=== PATIENT | male | born 1975 | race Caucasian/White ===

== ENCOUNTER 2023-10-30 22:29 | Emergency (ER) | payer OTHER, SELFPAY ==
[2023-10-30 22:57] VITALS: BP 173/99; PULSE 123; TEMP 38; O2SAT 98; BMI 34.7
--- NOTE | 2023-10-30 23:20 | CT_ITS ---
The [address] [address] Patient Name: SYBIL LUCIA MRN: [id number] date: 1975 Sex: M Assigned Patient Location: ER Current Patient Location: ER Accession/Order Number: [id number] Exam Date: 10/30/2023 23:44 Report Date: 10/31/2023 00:34 At the request of: SOTERO MARKER Procedure: CT abdomen pelvis w con EXAM: CT abdomen pelvis w con HISTORY: fever, abd pain COMPARISON: CT abdomen and pelvis examination dated 04/02/2021. TECHNIQUE: Axial CT images through the abdomen and pelvis were obtained after the intravenous administration of contrast. Coronal and sagittal reformats were obtained. Dose reduction techniques were achieved by using automated exposure control and/or adjustment of mA and/or kV according to patient size and/or use of iterative reconstruction technique. FINDINGS: There is mild bibasilar atelectasis. Abdomen: The liver and spleen enhance homogeneously without focal lesion. There is no intra or extrahepatic biliary duct dilatation. The gallbladder is surgically absent. There are a few subcentimeter hypodensities in the kidneys that are too small to characterize by CT size criteria. Otherwise, the pancreas, adrenal glands, kidneys, and bowel loops are unremarkable. The patient is status post an appendectomy. There is no mesenteric or retroperitoneal lymphadenopathy. Pelvis: The bladder is collapsed with possible wall thickening. The rectum is unremarkable. There is no iliac or inguinal lymphadenopathy. There is a small fat-containing left inguinal hernia. Bone windows show no aggressive osseous lesions. CT/CT abdomen pelvis w con IMPRESSION: 1. No specific etiology identified to explain the patient's abdominal pain. 2. Status post cholecystectomy and appendectomy. 3. Urinary bladder wall thickening which could be secondary to nondistention; however, please correlate with urinalysis for infection. Electronically authenticated by: Cruzito OSBORN Date: 10/31/2023 00:34
[2023-10-30 23:39] LABS: Adenovirus NOT DETECTED (NOT DETECTE); Bordetella parapertussis NOT DETECTED (NOT DETECTE); Coronavirus 229E NOT DETECTED (NOT DETECTE); Coronavirus HKU1 NOT DETECTED (NOT DETECTE); Coronavirus NL63 NOT DETECTED (NOT DETECTE); Coronavirus OC43 NOT DETECTED (NOT DETECTE); Human Rhinovirus/Enterovirus NOT DETECTED (NOT DETECTE); Influenza A NOT DETECTED (NOT DETECTE); Influenza B NOT DETECTED (NOT DETECTE); Mycoplasma pneumoniae NOT DETECTED (NOT DETECTE); Parainfluenza Virus 1 NOT DETECTED (NOT DETECTE); Parainfluenza Virus 2 NOT DETECTED (NOT DETECTE); Parainfluenza Virus 3 NOT DETECTED (NOT DETECTE); Parainfluenza Virus 4 NOT DETECTED (NOT DETECTE); Respiratory Syncytial Virus NOT DETECTED (NOT DETECTE); SARS-CoV-2 NOT DETECTED (NOT DETECTE)
[2023-10-30 23:40] LABS: Hematocrit 44.7 % (42.0-54.0); Hemoglobin 14.8 g/dL (14.0-18.0); Mean Corpuscular HGB Conc 33.1 g/dL (29.9-35.2); Mean Corpuscular Hemoglobin 30.5 pg (25.9-34.0); Mean Platelet Volume 9.6 fL (9.5-13.5); Platelet Count 268 10^3/uL (150-450); Red Blood Count 4.86 10^6/uL (4.70-6.10); Red Cell Distribution Width 12.1 % (11.0-15.0); White Blood Count 14.8 10^3/uL (4.0-11.0)
[2023-10-30 23:47] LABS: Internal Control Within Normal Limits; Strep A Antigen Screen Negative
[2023-10-30 23:50] LABS: Adenovirus F 40/41 NOT DETECTED (NOT DETECTE); Astrovirus NOT DETECTED (NOT DETECTE); Campylobacter NOT DETECTED (NOT DETECTE); Cryptosporidium NOT DETECTED (NOT DETECTE); Cyclospora cayetanensis NOT DETECTED (NOT DETECTE); Entamoeba histolytica NOT DETECTED (NOT DETECTE); Enteroaggregative E.coli NOT DETECTED (NOT DETECTE); Enteropathogenic E.coli NOT DETECTED (NOT DETECTE); Enterotoxigenic E. coli NOT DETECTED (NOT DETECTE); Giardia lamblia NOT DETECTED (NOT DETECTE); Norovirus GI/GII NOT DETECTED (NOT DETECTE); Plesiomonas shigelloides NOT DETECTED (NOT DETECTE); Rotavirus A NOT DETECTED (NOT DETECTE); Salmonella NOT DETECTED (NOT DETECTE); Sapovirus NOT DETECTED (NOT DETECTE); Shiga-like toxin-producing E.C NOT DETECTED (NOT DETECTE); Shigella/Enteroinvasive E.coli NOT DETECTED (NOT DETECTE); Vibrio NOT DETECTED (NOT DETECTE); Vibrio cholerae NOT DETECTED (NOT DETECTE); Yersinia enterocolitica NOT DETECTED (NOT DETECTE)
[2023-10-30 23:53] LABS: Bilirubin Urine NEGATIVE (NEGATIVE); Blood Urine NEGATIVE (NEGATIVE); Clarity Urine CLEAR (CLEAR); Color Urine YELLOW (YELLOW); Glucose Urine UA NEGATIVE (NEGATIVE); Ketones Urine NEGATIVE (NEGATIVE); Leukocyte Esterase Urine NEGATIVE (NEGATIVE); Nitrite Urine NEGATIVE (NEGATIVE); Protein Urine NEGATIVE (NEG/TRACE); Specific Gravity Urine >=1.030 (1.005-1.025); Urobilinogen Urine 0.2 EU/dL (0.2-1.0)
[2023-10-30 23:56] LABS: Urine Microscopic Indicated NO
[2023-10-30] MEDS: LACTATED RINGER'S SOLUTION 1,000 ML 999 ML IV (23:56)
--- NOTE | 2023-10-31 00:07 | ED_ITS ---
HPI HPI - General Adult General Chief complaint: Abdominal Pain Stated complaint: Flu Like Symptoms Time Seen by Provider: 10/30/23 23:18 Source: patient Mode of arrival: walk-in Limitations: no limitations History of Present Illness HPI narrative: This 48-year-old male who has had multiple abdominal surgeries including hernia surgery, cholecystectomy, appendectomy and has a history of hypertension presents for evaluation of fever, diarrhea and generalized abdominal pain. The symptoms started yesterday. He was on a family vacation last week and his granddaughter was sick at that time although she had upper respiratory symptoms. He states he had a temperature of 101 at home. Upon arrival in emergency department his 100.4. He is nauseated but has not vomited but has had multiple episodes of diarrhea throughout the day. He has generalized abdominal pain. He denies any headache or sore throat. He does not have a cough. He denies a history of tobacco use but does use a vape pen. Related Data Home Medications ?Medication ?Instructions ?Recorded ?Confirmed lisinopril 10 mg tablet 10 mg PO DAILY 10/30/23 10/30/23 pantoprazole 40 mg tablet,delayed 40 mg PO DAILY 10/30/23 10/30/23 release rivaroxaban 20 mg tablet (Xarelto) 20 mg PO Q24H 10/30/23 10/30/23 Allergies Allergy/AdvReac Type Severity Reaction Status Date / Time No Known Drug Allergies Allergy Verified 10/30/23 22:57 Opioid HPI Opioid Management Most Recent Opioid Data: Last Pain Scale 7 10/30/23 23:21 Last ED Pain Assessment 10/30/23 23:21 Last MAR Pain Assessment 10/31/23 00:29 Review of Systems ROS Status of ROS 10 or more systems reviewed and unremark able except as noted in history and below [facility] Medical History (Updated 10/31/23 @ 01:43 by Marybeth Isbell MD) Hypertension ?I10 - Essential (primary) hypertension (ICD-10) DVT (deep venous thrombosis) ?I82.409 - Acute embolism and thrombosis of unspecified deep veins of unspecified lower extremity (ICD-10) Surgical History (Updated 10/30/23 @ 23:11 by Lowell Lorenzo) Status post left foot surgery ?Z98.890 - Other specified postprocedural states (ICD-10) H/O inguinal hernia repair ?Z98.890 - Other specified postprocedural states (ICD-10) ?Z87.19 - Personal history of other diseases of the digestive system (ICD-10) H/O umbilical hernia repair ?Z98.890 - Other specified postprocedural states (ICD-10) ?Z87.19 - Personal history of other diseases of the digestive system (ICD-10) Hx of appendectomy ?Z90.49 - Acquired absence of other specified parts of digestive tract (ICD- 10) History of cholecystectomy ?Z90.49 - Acquired absence of other specified parts of digestive tract (ICD- 10) Exam Narrative Exam Narrative: Nurses note and vital signs reviewed; Patient is febrile, tachycardic and blood pressure is elevated at 173/99, he is not hypoxic a pulse ox 98 percent on room air General: Ill-appearing overweight male, no respiratory distress Skin: Warm, dry, no pallor noted. There is no rash noted. Head: Normocephalic, atraumatic Eye: Normal conjunctiva, no drainage, EOMI. PERRL Ears, Nose, Mouth, and Throat: oral mucosa is moist. Nares patent. Mouth without vesicles. Neck: Supple, no meningeal signs Cardiovascular: Regular Rate and Rhythm, Tachycardic at 123 bpm Respiratory: Patient is in no distress, no accessory muscle use, lungs are clear to auscultation, no wheezing, rales or rhonchi Back: non-tender, no CVA tenderness bilaterally to percussion. GI: Hyperactive bowel sounds with generalized abdominal tenderness, no rebound guarding rigidity appreciated Musculoskeletal: The patient has no evidence of calf tenderness, no pitting edema, symmetrical pulses noted bilaterally Neurological: A&O x4, normal speech Psychiatric: Cooperative, Anxious Constitutional Vital Signs, click to edit/add: Last Vital Signs Temp 101.3 F H 10/31/23 00:32 Pulse 98 H 10/31/23 00:32 Resp 20 10/31/23 00:32 BP 165/84 H 10/31/23 00:32 Pulse Ox 97 10/31/23 00:32 O2 Del Method Room Air 10/31/23 00:32 Course Vital Signs Vital signs: Vital Signs Temperature 100.4 F 10/30/23 22:57 Pulse Rate 123 H 10/30/23 22:57 Respiratory Rate 18 10/30/23 22:57 Blood Pressure 173/99 H 10/30/23 22:57 Pulse Oximetry 98 10/30/23 22:57 Oxygen Delivery Method Room Air 10/30/23 22:57 Temperature 101.3 F H 10/31/23 00:32 Pulse Rate 98 H 10/31/23 00:32 Respiratory Rate 20 10/31/23 00:32 Blood Pressure 165/84 H 10/31/23 00:32 Pulse Oximetry 97 10/31/23 00:32 Oxygen Delivery Method Room Air 10/31/23 00:32 Medical Decision Making MDM Narrative Medical decision making narrative: This 48 year old male who is status post cholecystectomy and appendectomy and multiple hernia surgeries presents for evaluation of fever with abdominal episodes of diarrhea starting yesterday. His granddaughter was recently sick with upper respiratory infection. Upon arrival he was tachycardic and febrile. He was somewhat ill-appearing. He had diffuse abdominal tenderness. EKG upon arrival was a sinus tachycardia at 108 beats per minute with no acute changes. A septic workup was ordered with 2 sets of blood cultures chemistry panel CBC with differential, lactic acid and Respiratory panel, strep and CT scan of abdomen/ pelvis. He has an elevated WBC count at 14.8 with a normal hemoglobin. Lactic acid was normal. Electrolytes are normal. respiratory panel is positive for metapneumo virus. Strep testing is negative. Stool is positive for C diff. CT scan of the abdomen and pelvis with IV contrast was ordered to rule out acute diverticulitis or other infectious etiologies the body of this report and does not show any findings that account for the patients symptoms. Is also his labs and CT scan were discussed with the patient. He was started on oral vancomycin in the emergency department. He was recently on Augmentin for a ear infection/sinus infection, he states that was approximately 2-3 weeks ago. This is likely the etiology of his C. difficile infection. The patient does not have a family physician currently and states he is running out of his usual m edications including Xarelto and lisinopril. He is on Xarelto due to a history of deep vein thromboses from an unknown etiology. He will be given refills for his Xarelto lisinopril in emergency department and referred to outpatient family medicine accepting new patients. He feels comfortable being discharged home at this time and in addition to the vancomycin lisinopril and Xarelto will be given prescriptions for Zofran and Bentyl for the nausea and abdominal cramping. Medical Records Medical records narrative: The [address] [address] [address] Scan Report Signed Patient: SYBIL LUCIA MR#: [id number] : 1975 Acct:[id number] Age/Sex: 48 / M ADM Date: 10/30/23 Loc: ER Attending Dr: Ordering Physician: Marybeth Isbell Date of Service: 10/30/23 Procedure(s): CT abdomen pelvis w con Accession Number(s): [id number] cc: Physician,Non-Staff M.D.~ The [address] [address] Patient Name: SYBIL LUCIA MRN: [id number] date: 1975 Sex: M Assigned Patient Location: ER Current Patient Location: ER Accession/Order Number: [id number] Exam Date: 10/30/2023 23:44 Report Date: 10/31/2023 00:34 At the request of: MARYBETH ISBELL Procedure: CT abdomen pelvis w con EXAM: CT abdomen pelvis w con HISTORY: fever, abd pain COMPARISON: CT abdomen and pelvis examination dated 04/02/2021. TECHNIQUE: Axial CT images through the abdomen and pelvis were obtained after the intravenous administration of contrast. Coronal and sagittal reformats were obtained. Dose reduction techniques were achieved by using automated exposure control and/or adjustment of mA and/or kV according to patient size and/or use of iterative reconstruction technique. FINDINGS: There is mild bibasilar atelectasis. Abdomen: The liver and spleen enhance homogeneously without focal lesion. There is no intra or extrahepatic biliary duct dilatation. The gallbladder is surgically absent. There are a few subcentimeter hypodensities in the kidneys that are too small to characterize by CT size criteria. Otherwise, the pancreas, adrenal glands, kidneys, and bowel loops are unremarkable. The patient is status post an appendectomy. There is no mesenteric or retroperitoneal lymphadenopathy. Pelvis: The bladder is collapsed with possible wall thickening. The rectum is unremarkable. There is no iliac or inguinal lymphadenopathy. There is a small fat-containing left inguinal hernia. Bone windows show no aggressive osseous lesions. CT/CT abdomen pelvis w con IMPRESSION: 1. No specific etiology identified to explain the patient's abdominal pain. 2. Status post cholecystectomy and appendectomy. 3. Urinary bladder wall thickening which could be secondary to nondistention; however, please correlate with urinalysis for infection. Electronically authenticated by: Cruzito OSBORN Date: 10/31/2023 00:34 Lab Data Lab results reviewed: Yes I reviewed the patient's lab results Labs: Lab Results 10/30/23 10/30/23 Range/Units 23:25 23:46 WBC 14.8 H (4.0-11.0) 10^3/uL RBC 4.86 (4.70-6.10) 10^6/uL Hgb 14.8 (14.0-18.0) g/dL Hct 44.7 (42.0-54.0) % MCV 92.0 (80.0-94.0) fL MCH 30.5 (25.9-34.0) pg MCHC 33.1 (29.9-35.2) g/dL RDW 12.1 (11.0-15.0) % Plt Count 268 (150-450) 10^3/uL MPV 9.6 (9.5-13.5) fL Seg Neuts % (Manual) 75.0 Band Neutrophils % 1.0 (0-5) % Lymphocytes % (Manual) 6.0 L (20.5-60.0) % Atypical Lymphs % (Man) 4.0 % Monocytes % (Manual) 14.0 H (1.7-12.0) % Eosinophils % (Manual) 0.0 L (0.9-7.0) % Basophils % (Manual) 0.0 L (0.2-2.0) % Neutrophils # (Manual) 11.10 H (1.4-6.5) 10^3/uL Band Neutrophils # 0.1 (0.0-0.3) 10^3/uL Lymphocytes # (Manual) 0.88 L (1.20-3.80) 10^3/uL Abs Atypical Lymphs Man 0.59 Monocytes # (Manual) 2.07 H (0.30-0.80) 10^3/uL Eosinophils # (Manual) 0.00 (0.00-0.70) 10^3/uL Basophils # (Manual) 0.00 (0.00-0.10) 10^3/uL Toxic Vacuolation 2+ Sodium 137 (136-145) mmol/L Potassium 4.2 (3.5-5.1) mmol/L Chloride 103 (98-107) mmol/L Carbon Dioxide 23.5 (21.0-32.0) mmol/L Anion Gap 14.7 BUN 12.0 (7.0-18.0) mg/dL Creatinine 0.99 (0.70-1.30) mg/dL Est GFR ( Amer) >60 (>=60) Est GFR (Non-Af Amer) >60 (>=60) BUN/Creatinine Ratio 12.1 Glucose 102 (74-106) mg/dL Lactate 1.6 (0.4-2.0) mmol/L Calcium 9.3 (8.5-10.1) mg/dL Total Bilirubin 0.3 (0.2-1.0) mg/dL AST 24 (15-37) U/L ALT 47 (16-63) U/L Alkaline Phosphatase 114 (46-116) U/L Total Protein 7.2 (6.4-8.2) g/dL Albumin 3.3 L (3.4-5.0) g/dL Globulin 3.9 g/dL Albumin/Globulin Ratio 0.8 Procalcitonin 0.12 (0.00-0.50) ng/mL Urine Color Yellow (YELLOW) Urine Clarity Clear (CLEAR) Urine pH 6.0 (5.0-9.0) Ur Specific [place] >=1.030 A (1.005-1.025) Urine Protein Negative (NEG/TRACE) mg/dL Urine Glucose (UA) Negative (NEGATIVE) mg/dL Urine Ketones Negative (NEGATIVE) mg/dL Urine Occult Blood Negative (NEGATIVE) Urine Nitrite Negative (NEGATIVE) Urine Bilirubin Negative (NEGATIVE) Urine Urobilinogen 0.2 (0.2-1.0) EU/dL Ur Leukocyte Esterase Negative (NEGATIVE) Stl C. cayetanensis PCR Not detected (NOT DETECTE) Stool Rotavirus (PCR) Not detected (NOT DETECTE) Stool Adenovirus (PCR) Not detected (NOT DETECTE) Stool Astrovirus (PCR) Not detected (NOT DETECTE) Stool Campylobacter PCR Not detected (NOT DETECTE) Stool Cryptosporidium PCR Not detected (NOT DETECTE) St Sh/Enteroin Ecoli PCR Not detected (NOT DETECTE) Stl Enterotoxigenic E PCR Not detected (NOT DETECTE) Stool EPEC (PCR) Not detected (NOT DETECTE) Stl E. histolytica PCR Not detected (NOT DETECTE) Stool Giardia Lamblia PCR Not detected (NOT DETECTE) Stl P. shigelloides PCR Not detected (NOT DETECTE) Stool Salmonella PCR Not detected (NOT DETECTE) Stool Sapovirus (PCR) Not detected (NOT DETECTE) Stl Shiga-like Tx 1 PCR Not detected (NOT DETECTE) St Y.enterocolitica PCR Not detected (NOT DETECTE) Stl Vibrio cholerae PCR Not detected (NOT DETECTE) Stl Enteroaggr Ecoli PCR Not detected (NOT DETECTE) Stl Norovirus GI/GII PCR Not detected (NOT DETECTE) Specimen Source Stool Adenovirus (PCR) Not detected (NOT DETECTE) C. pneumoniae DNA (PCR) Not detected (NOT DETECTE) C. difficile Toxin A&B Detected A* (NOT DETECTE) Coronavirus Type OC43 Not detected (NOT DETECTE) Coronavirus Type HKU1 Not detected (NOT DETECTE) Coronavirus Type 229E Not detected (NOT DETECTE) Coronavirus Type NL63 Not detected (NOT DETECTE) Human Metapneumovir PCR Detected A (NOT DETECTE) M. pneumoniae (PCR) Not detected (NOT DETECTE) Parainfluenza PCR Not detected (NOT DETECTE) Parainfluenza 2 (PCR) Not detected (NOT DETECTE) Parainfluenza 3 (PCR) Not detected (NOT DETECTE) Parainfluenza 4 (PCR) Not detected (NOT DETECTE) RSV (RT-PCR) Not detected (NOT DETECTE) Entero/Rhino (PCR) Not detected (NOT DETECTE) SARS-CoV-2 (PCR) Not detected (NOT DETECTE) Streptococcus Screen Negative Vibrio Culture Not detected (NOT DETECTE) Bordetella pertussis (PCR) Not detected (NOT DETECTE) B parapertussis DNA PCR Not detected (NOT DETECTE) Influenza Type A (PCR) Not detected (NOT DETECTE) Influenza Type B (PCR) Not detected (NOT DETECTE) ECG Data Attestation: I personally reviewed and interpreted this ECG as follows: (EKG interpretation sinus tachycardia 108 beats for minute, normal axis, normal intervals, no acute ST segment elevation or T-wave inversion) Discharge Plan Discharge Stand Alone Forms: Portal Instructions Chief Complaint: Abdominal Pain Clinical Impression: C. difficile diarrhea, Acute viral syndrome Patient Disposition: Home, Self-Care Time of Disposition Decision: 01:42 Condition: Good Prescriptions / Home Meds: No Action lisinopril 10 mg tablet 10 mg PO DAILY pantoprazole 40 mg tablet,delayed release (DR/EC) 40 mg PO DAILY Xarelto 20 mg tablet 20 mg PO Q24H Print Language: [place] Instructions: C. Diff (Clostridioides Difficile) Infection (ED), Viral Syndrome (ED), Enteritis (ED) Additional Instructions: Use probiotics such as Align and/or yogurt on a daily basis to improve the got marva. Use antibiotics as directed. Please follow up with one of the providers accepting new physicians for further evaluation and treatment and return to the emergency department for worsening symptoms, bloody diarrhea, inability to tolerate her medications or any concerns. Referrals: Physician,Non-Staff, MD [Primary Care Provider] - 1 week
[2023-10-31 00:14] LABS: Alanine Aminotransferase 47 U/L (16-63); Albumin Globulin Ratio 0.8; Albumin Level 3.3 g/dL (3.4-5.0); Alkaline Phosphatase 114 U/L (46-116); Anion Gap 14.7; Aspartate Amino Transferase 24 U/L (15-37); BUN Creatinine Ratio 12.1; Bilirubin Total 0.3 mg/dL (0.2-1.0); Calcium 9.3 mg/dL (8.5-10.1); Carbon Dioxide 23.5 mmol/L (21.0-32.0); Chloride 103 mmol/L (98-107); Estimated GFR (African America >60 (>=60); Estimated GFR (Non-African Ame >60 (>=60); Globulin 3.9 g/dL; Glucose 102 mg/dL (74-106); Potassium 4.2 mmol/L (3.5-5.1); Sodium 137 mmol/L (136-145); Total Protein 7.2 g/dL (6.4-8.2)
[2023-10-31 00:16] LABS: Atypical Lymphocytes Abs Man 0.59; Band Neutrophils Absolute 0.1 10^3/uL (0.0-0.3); Lactate/Lactic Acid 1.6 mmol/L (0.4-2.0); Lymphocytes Absolute Manual 0.88 10^3/uL (1.20-3.80); Monocytes Absolute Manual 2.07 10^3/uL (0.30-0.80); Toxic Vacuolation 2+
[2023-10-31 00:25] LABS: PROCALCITONIN 0.12 ng/mL (0.00-0.50)
[2023-10-31] MEDS: ACETAMINOPHEN 325 MG TABLET 650 MG PO (00:29)
[2023-10-31] MEDS: KETOROLAC TROMETHAMINE 30 MG/ML VIAL IVP (00:29)
[2023-10-31 00:32] VITALS: BP 165/84; PULSE 98; TEMP 38.5; O2SAT 97
[2023-10-31 00:33] LABS: Human Metapneumovirus DETECTED (NOT DETECTE)
[2023-10-31] MEDS: 0.9 % SODIUM CHLORIDE 1,000 ML 1000 ML IV (01:06)
[2023-10-31] MEDS: ONDANSETRON PF 4 MG/2 ML VIAL IV (01:08)
--- NOTE | 2023-10-31 01:14 | XR_ITS ---
The [place] [id number] Patient Name: SYBIL LUCIA MRN: [id number] date: 1975 Sex: M Assigned Patient Location: ER Current Patient Location: Accession/Order Number: [id number] Exam Date: 10/31/2023 01:20 Report Date: 10/31/2023 02:55 At the request of: SOTERO SHARMA Procedure: XR chest 1V XR chest 1V 10/31/2023 1:20 AM EDT CLINICAL INDICATION: Fever and cough COMPARISON: None. TECHNIQUE: Portable semiupright AP view of the chest. FINDINGS: There are no tubes or implants noted. The cardiomediastinal silhouette and pulmonary vasculature are within normal limits. No focal parenchymal opacities. No pneumothorax or pleural effusion. No displaced rib fractures. Osseous structures demonstrate degenerative changes. Soft tissues are grossly normal. XR/XR chest 1V IMPRESSION: No acute cardiopulmonary abnormality. Electronically authenticated by: DEBBIE TONG Date: 10/31/2023 02:55
[2023-10-31 02:35] VITALS: BP 121/77; PULSE 81; TEMP 37.4; O2SAT 98
--- NOTE | 2023-10-31 04:31 | ECG_ITS ---
The [facility] Test Date: 2023-10-30 Pat Name: SYBIL LUCIA Department: Room: - Gender: Male Manager Story: : 1975 Requested By: [id number] Order Number: [id number] Reading MD: HUNTER PALMER Measurements Intervals [place] Rate: 108 P: 58 NC: 138 QRS: 63 QRSD: 76 T: 49 QT: 304 QTc: 367 Interpretive Statements 1120 Sinus tachycardia 9140 abnormal rhythm ECG Compared to ECG 01/13/2018 17:05:27 Sinus rhythm no longer present Electronically Signed On 10-31-2023 6:47:52 EDT by HUNTER PALMER
== END 2023-10-31 02:38 | disposition home or self-care (01) ==
PROVIDERS: Emergency Provider Emergency Medicine
DX: A04.72 Enterocolitis due to Clostridium difficile, not specified as recurrent (principal); B34.9 Viral infection, unspecified; I10 Essential (primary) hypertension; Z86.718 Personal history of other venous thrombosis and embolism; Z98.890 Other specified postprocedural states; Z90.49 Acquired absence of other specified parts of digestive tract; Z79.899 Other long term (current) drug therapy; Z79.01 Long term (current) use of anticoagulants; Z20.822 Contact with and (suspected) exposure to COVID-19
CPT/HCPCS: 0202U; 36415; 71045; 74177; 80053; 81003; 83605; 84145; 85007; 85027; 87040; 87045; 87046; 87070; 87427; 87507; 87880; 93005; 96374; 96375; 99285; Q9967

== ENCOUNTER 2024-11-17 10:19 | Outpatient (OUT) | payer OTHER, SELFPAY | END 2024-11-17 10:20 | disposition home or self-care (01) | LOC: US 10:22 | PROVIDERS: PCP Nurse Practitioner Family; Visit Provider Family Medicine | DX: I82.401 Acute embolism and thrombosis of unspecified deep veins of right lower extremity (principal) | CPT/HCPCS: 93971 ==